=== PATIENT | female | born 2000 | race Caucasian/White ===

== ENCOUNTER 2021-05-24 21:28 | Emergency (ER) | payer OTHER ==
[~2021-05-24 21:28] MED LIST: CORTAID28 GM TP; NAPROSYN500 MG PO; NYSTATIN15 GM TP; OMNICEF 300 MG300 MG PO; TESSALON PERLE100 MG PO; ZOFRAN4 MG PO; ZYRTEC-D TABLE1 EACH PO
== END 2021-05-24 21:47 | disposition left against medical advice (07) ==
LOC: ER1 21:28
DX: Z53.21 Procedure and treatment not carried out due to patient leaving prior to being seen by health care provider (principal)
CPT/HCPCS: 71045

== ENCOUNTER 2021-07-19 18:19 | Emergency (ER) | payer OTHER ==
[2021-07-19 19:19] LABS: HEMOGLOBIN 15.6 gm/dl (12.3-15.3); RED BLOOD COUNT 5.41 M/UL (4.00-5.10); WHITE BLOOD COUNT 12.4 K/UL (4.5-11.0)
[2021-07-19 19:38] LABS: BUN/CREATININE RATIO 15 (0-10)
[2021-07-19] MEDS ORDERED: NORFLEX 100 MG100 MG PO (21:30)
[2021-07-19] MEDS ORDERED: LODINE CAP 300300 MG PO (21:30)
== END 2021-07-19 21:00 | disposition home or self-care (01) ==
LOC: ER1 18:19
PROVIDERS: Physician Assistant
DX: S13.4XXA Sprain of ligaments of cervical spine, initial encounter (principal); S23.3XXA Sprain of ligaments of thoracic spine, initial encounter; S80.02XA Contusion of left knee, initial encounter; S20.212A Contusion of left front wall of thorax, initial encounter; R10.9 Unspecified abdominal pain; R10.817 Generalized abdominal tenderness; R51.9 Headache, unspecified; J45.909 Unspecified asthma, uncomplicated; Z88.0 Allergy status to penicillin; V49.40XA Driver injured in collision with unspecified motor vehicles in traffic accident, initial encounter; Y92.410 Unspecified street and highway as the place of occurrence of the external cause
CPT/HCPCS: 70450; 71260; 72125; 72128; 72131; 73564; 73590; 80053; 81001; 84703; 85025; 87086; 99284; Q9967